=== PATIENT | female | born 1980 | race African-American/Black ===

== ENCOUNTER 2021-12-02 16:58 | Emergency (ER) | payer OTHER ==
[~2021-12-02] VITALS: Ht 160 cm; Wt 63.5 kg
[~2021-12-02 16:58] MED LIST: AMITRIPTYLIN75 MG PO; DILAUDID8 MG PO
== END 2021-12-02 17:31 | disposition home or self-care (01) ==
LOC: ED 16:58
DX: R52 Pain, unspecified (principal); R60.9 Edema, unspecified
CPT/HCPCS: 99281

== ENCOUNTER 2021-12-02 17:47 | Emergency (ER) | payer OTHER ==
[~2021-12-02] VITALS: Ht 157.5 cm; Wt 56.2 kg
[2021-12-02 18:00] VITALS: BP 148/57; TEMP 98.8
== END 2021-12-02 18:10 | disposition home or self-care (01) ==
LOC: ED 17:47
DX: R60.9 Edema, unspecified (principal); Z53.21 Procedure and treatment not carried out due to patient leaving prior to being seen by health care provider
CPT/HCPCS: 99281